=== PATIENT | male | born 1975 | race African-American/Black ===

== ENCOUNTER 2016-10-11 01:07 | Emergency (ER) | payer OTHER ==
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
[2016-10-11] MEDS ORDERED: IBUPROFEN 800 MG TABLET PO ONE (04:57)
[2016-10-11 05:20] VITALS: BP 117/76
== END 2016-10-11 05:18 | disposition home or self-care (01) ==
LOC: ER 01:07
DX: S39.012A Strain of muscle, fascia and tendon of lower back, initial encounter (principal); X50.1XXA Overexertion from prolonged static or awkward postures, initial encounter; Y99.0 Civilian activity done for income or pay; T49.0X1A Poisoning by local antifungal, anti-infective and anti-inflammatory drugs, accidental (unintentional), initial encounter; T20.45XA Corrosion of unspecified degree of scalp [any part], initial encounter; F17.200 Nicotine dependence, unspecified, uncomplicated; Z71.6 Tobacco abuse counseling
CPT/HCPCS: 99283